=== PATIENT | female | born 1950 | race Caucasian/White ===

== ENCOUNTER 2024-06-22 10:28 | Outpatient (AMB) | payer MEDICARE, SELFPAY ==
--- NOTE | 2024-06-22 10:48 | MHC.OFFVIS ---
Vital Signs 06/22/24 10:57 Height 5 ft 8 in Weight 190 lb BMI 28.9 BP 144/69 H Blood Pressure Location Lt brachial Position Sitting Pulse 84 Intake Visit Reasons: Colonoscopy screening Intake Note: Patient is seen in office for colonoscopy screening. Pt c/o: had a pre cancerous polyp removed in prior colonoscopy and is on 5 yrs recall, prior colonoscopies at [place] and/or [facility], has occasional constipation, 4 wks ago had knee surgery, states could be due to pain meds Line Closer Required: No Accompanied by: Self / Same As Patient Allergies No Known Allergies Allergy (Verified 06/22/24 10:56) Medication List - Last Reviewed 06/22/24 by PATI Queen acetaminophen (Tylenol) 325 mg PO QID PRN atorvastatin 20 mg PO DAILY celecoxib (Celebrex) 200 mg PO DAILY HPI HPI Colonoscopy screening: Details: 73-year-old female referred for screening colonoscopy. She says she has been undergoing a colonoscopy every 5 years because of the history of colon polyps. Her last colonoscopy was about 6 years ago. She says this was done in [facility]. She says that they did not find column polyps on her last colonoscopy. She was told that she had a very long colon She denies any GI complaints at this time. She denies a family history of colon cancer. She states that she just had a knee replacement surgery on the left 4 weeks ago. [facility] Medical History Colon cancer screening Surgical History Hx of section History of total left knee replacement Hx of colonoscopy (10/12/14) Social History Alcohol intake: current Alcohol intake frequency: holidays/special occasions only Patient Tobacco Use Status: Never used Tobacco Review of Systems Const Denies chills and Denies fever(s) Card Denies chest pain, Denies dyspnea and Denies dyspnea on exertion Resp Denies cough, Denies dyspnea and Denies dyspnea on exertion GI Denies hematochezia and Denies change in bowel habits Denies hematuria Musc Denies back pain, Reports arthralgias and Reports limited range of motion Neuro Denies focal weakness and Denies convulsions Psych Denies depression and Denies mood swings Physical Exam Const Other: Using a cane, walks with a limp General: comfortable and no acute distress Orientation/consciousness: patient oriented x3 Neck Neck: Yes no lymphadenopathy Resp Auscultation: clear to auscultation bilaterally Cardio Rhythm: regular rhythm GI Palpation (GI): Soft to palpation, nontender and no guarding Neuro General: patient oriented x3 Assessment & Plan Assessment & Plan (1) Colon cancer screening: Code(s): Z12.11 - Encounter for screening for malignant neoplasm of colon Category: Medical Plan: I explained to her the technique of colonoscopy for screening. I reviewed the risks including but not limited to bleeding and perforation, as well as the benefits and alternatives. She understands and wants to proceed. Coding Level of Care Code New Pt Level 3 (01760) Diagnoses Colon cancer screening Z12.11
[2024-06-22 10:57] VITALS: BP 144/69; PULSE 84; BMI 28.9
== END 2024-06-22 11:05 | disposition home or self-care (01) ==
LOC: HO.HGS 10:28
PROVIDERS: PCP Internal Medicine; Visit Provider Surgery
DX: Z12.11 Encounter for screening for malignant neoplasm of colon (principal)
CPT/HCPCS: 99203

== ENCOUNTER → 2024-06-22 10:28 | Outpatient (BNVA) | payer MEDICARE, SELFPAY | PROVIDERS: PCP Internal Medicine; Visit Provider Surgery | DX: Z12.11 Encounter for screening for malignant neoplasm of colon (principal) | CPT/HCPCS: 99202 ==

== ENCOUNTER 2024-09-16 07:04 | Day surgery (SDC) | payer MEDICARE, SELFPAY ==
[2024-09-14 10:25] VITALS: BMI 28.9
--- OUTSIDE RECORDS SUMMARY | 2024-09-14 17:22 | XMS_ITS | Patient Health Record ---
Author Organization [facility] [address] Address [address] [place] [address] Care Team Providers Care Expediter Clerk Name Role Phone Ulysses Goldman MD Primary Care Provider Tato Deng Unavailable [phone] Reason For Referral No Information Medications Medication SIG (Take, Route, Frequency, Duration) Notes Start Date End Date Status Vitamin D Active Low-Dose Aspirin Act seferino Calcium Active Atorvastatin Calcium 20 MG TAKE 1 TABLET BY MOUTH EVERY DAY Oral for 90 Active Alendronate Sodium 70 MG 1 tablet Orally for 30 day(s) Not-Taking Nystatin-Triamcinolone 323817-6.1 UNIT/GM APPLY IN THE MORNING AND AT NIGHT TO THE RIGHT AND LEFT CORNERS OF THE MOUTH WHEN NEEDED External for 7 Not-Taking Yuvafem 10 MCG USE 1-2 TIMES A WEEK FOR 8 WEEKS Vaginal for 56 Not-Taking Social History Tobacco Use: Social History Observation Description Date Details (start date - stop date) Never Smoker NA - NA Tobacco Use/Smoking Question Answer Notes Are you a: nonsmoker Additional Findings: Tobacco Non-User Current no n-smoker Alcohol Screen Question Answer Notes Did you have a drink containing alcohol in the p ast year? Yes Points 0 Interpretation Negative Tobacco use other than smoking: Question Answer Notes Are you an other tobacco user? No Plan Of Treatment Pending Test Test Name Order Date X ray : Foot, left 3V 04/29/2012 Insurance Providers Payer Name Payer Address Payer Phone Subscriber Number Group Number Insured Name Patient Relationship to Insured Coverage Start Date Coverage End Date [facility] [address] [place] [address] [phone] [id number] Chaparrita Hinton Self - patient is the insured Medical (General) History Medical History History ICD Code Arthritis back, hip, knee pain broken bones measles chicken pox CAD Surgical History Surgery Date(Month/Year) section 1977, 1980
[2024-09-16 07:58] VITALS: BP 135/74; PULSE 80; RESP 12; TEMP 36.6; O2SAT 100; BMI 27.1
[2024-09-16] MEDS: Lactated Ringers 1,000 ML 100 ML IVCONT (08:05)
--- NOTE | 2024-09-16 08:10 | MHC.SHP ---
Pre-Procedural Eval Section A - 24 Hr Update-Section A only Date of Service: 09/16/24 Section B - Complete if H&P > 30 days Chief Complaint: Encounter for screening for malignant neoplasm of Details of Present Illness: Has history of polyps, undergoes a colonoscopy every 5 years Relevant Family History (Specify if Yes): No Relevant Social History: None Present Medications: see Short Stay Collaborative assessment Medical History: Significant History (Hyperlipidemia, arthritis) History of Previous Operations: No relevant previous surgery Allergies: Allergies Allergy/AdvReac Type Severity Reaction Status Date / Time No Known Allergies Allergy Verified 09/16/24 07:49 Review of Systems Sugical H&P ROS: Negative: Constitution, Cardiovascular and Gastrointestinal Exam Surgical H&P Exam: Normal: Heart, Normal: Lungs and Normal: Abdomen Plan Diagnosis/Plan: Unchanged I have reviewed the history and physical and performed a pertinent physical examination on my patient. No changes have occurred unless specified. Time Spent With Patient Time: Total time managing care of this patient today ____ minutes.
--- NOTE | 2024-09-16 08:20 | P.CONAN_ITS ---
Documented by User: Gricel Salas NP 09/15/24 09:38 HPI - Anesthesia Eval Consult details Narrative: 73yo F for Colonoscopy, possible polypectomy PMFSH Active Problems Active Problems: All Active Problems Colon cancer screening (Acute) Past Medical History Medical History (Updated 09/14/24 @ 10:24 by Ruth Ann Pimentel, DOUG) Sleep apnea Colon cancer screening Surgical History Surgical History Hx of section History of total left knee replacement Hx of colonoscopy (10/12/14) Social History Social History Are you a primary aged or disabled care worker to a significant other at home: No Do you presently have visiting nurse or other home services: No Alcohol intake: current Alcohol intake frequency: does not drink Patient Tobacco Use Status: Never used Tobacco Use of substances other than those prescribed or required for medical reasons: No Have you been hit, kicked, punched, or otherwise hurt by someone within the past year? If so, by whom?: No Are you DNR?: No Advance Directives: No Advance Directives Information Provided: Yes Poor oral hygiene: No Meds Allergies Allergy/AdvReac Type Severity Reaction Status Date / Time No Known Allergies Allergy Verified 09/16/24 07:49 Home Medications ?Medication ?Instructions ?Recorded ?Confirmed ?Last Taken ?Type acetaminophen 325 mg tablet 325 mg PO QID PRN Pain (Sc vijay 06/22/24 09/16/24 Unknown History (Tylenol) Score 4-6) atorvastatin 20 mg tablet 20 mg PO DAILY 06/22/24 06/ Unknown History celecoxib 200 mg capsule (Celebrex) 200 mg PO DAILY 09/16/24 09/14/24 History Exam Height,Weight and Vital Signs: Height 5 ft 8 in Weight 86.183 kg Assessment and Plan Assessment Anesthesia Assessment: Chart Reviewed Documented by User: Anne Crenshaw DO 09/16/24 08:37 [facility] Past Medical History Medical History (Updated 09/14/24 @ 10:24 by Ruth Ann Pimentel, DOUG) Sleep apnea Colon cancer screening Family History Family history of problems with anesthesia: No Surgical History Surgical History Hx of section History of total left knee replacement Hx of colonoscopy (10/12/14) History of Problems with Anesthesia: No Social History Social History Are you a primary aged or disabled care worker to a significant other at home: No Do you presently have visiting nurse or other home services: No Alcohol intake: current Alcohol intake frequency: does not drink Patient Tobacco Use Status: Never used Tobacco Use of substances other than those prescribed or required for medical reasons: No Have you been hit, kicked, punched, or otherwise hurt by someone within the past year? If so, by whom?: No Are you DNR?: No Advance Directives: No Advance Directives Information Provided: Yes Poor oral hygiene: No Meds Allergies Allergy/AdvReac Type Severity Reaction Status Date / Time No Known Allergies Allergy Verified 09/16/24 07:49 Home Medications ?Medication ?Instructions ?Recorded ?Confirmed ?Last Taken ?Type acetaminophen 325 mg tablet 325 mg PO QID PRN Pain (Sc vijay 06/22/24 09/16/24 Unknown History (Tylenol) Score 4-6) atorvastatin 20 mg tablet 20 mg PO DAILY 06/22/24 06/ Unknown History celecoxib 200 mg capsule (Celebrex) 200 mg PO DAILY 09/16/24 09/14/24 History Exam Exam Date and Time: 09/16/24 0820 Height,Weight and Vital Signs: Height 5 ft 8 in Weight 86.183 kg Vital Signs Temperature 97.9 F 09/16/24 07:58 Pulse Rate 80 09/16/24 07:58 Respiratory Rate 12 09/16/24 07:58 Blood Pressure 135/74 09/16/24 07:58 Pulse Oximetry 100 09/16/24 07:58 Oxygen Delivery Method Room Air 09/16/24 07:58 Temperature 97.9 F 09/16/24 07:58 Pulse Rate 80 09/16/24 07:58 Respiratory Rate 12 09/16/24 07:58 Blood Pressure 135/74 09/16/24 07:58 Pulse Oximetry 100 09/16/24 07:58 Oxygen Delivery Method Room Air 09/16/24 07:58 Airway Mallampati Class: II TM Dist: <=3cm Neck ROM: Full Loose/Missing/Broken Teeth: No (patient denies any loose or broken teeth) Heart: S1S2 Lungs: CTAB Assessment and Plan Assessment Anesthesia Assessment: Anesthesia Plan Discussed and Chart Reviewed Final Anesthetic Review Family History of Problems with Anesthesia: No History of Problems with Anesthesia: No NPO: Yes ASA Class: II Final Preanesthetic Review: No Changes in Pt Med Stat, Meds/Allgs Chart Reviewed, Consent Obtained/Reviewed and Anes Risks/Benef Reviewed Patient Risk: Low Procedure Risk: Low Anesthetic Plan Anesthetic Plan: MAC: and Agree w/ Assess. and Plan Disposition: Standard PACU
[2024-09-16 08:55] VITALS: BP 119/57; PULSE 73; RESP 16; TEMP 36.3; O2SAT 98
--- NOTE | 2024-09-16 08:55 | W.PM.OPN ---
Operative Note Operative Note Date of Service: 09/16/24 Narrative: Preop diagnosis: History of polyps Postop diagnosis: Sigmoid diverticulosis, otherwise normal colonoscopy findings Procedure: Colonoscopy Surgeon: Dylan Cruz MD The patient is a 73 year old female who had polyps on a colonoscopy 5 years ago in [facility]. She was referred to me for follow-up colonoscopy. She understood the technique of the planned procedure as well as the risks, benefits, and alternatives The patient was brought to the operating room and placed in left lateral decubitus position under monitored anesthesia care. A surgical time-out was done. A full digital rectal exam was done and this did not reveal any significant anal lesions. The tip of the Olympus colonoscope was gently introduced through the anal orifice advanced with insufflation all the way to the cecum. The cecum was intubated. The cecum was identified by visualization of the ileocecal valve as well as the appendiceal orifice. The cecal mucosa was unremarkable. The scope was gradually withdrawn with careful examination of the entire colonic mucosa being done with scope withdrawal. The patient had adequate bowel prep so it was unlikely that any lesion may have been missed. There was note of moderate diverticulosis of the sigmoid. The rectum was reached and there were no lesions seen. The anal canal was unremarkable. The scope was then withdrawn completely with desufflatio. The patient tolerated procedure well. There were no immediate complications. Her next colonoscopy may be in the next 5 years.
[2024-09-16 09:09] VITALS: BP 129/75; PULSE 67; RESP 16; O2SAT 98
[2024-09-16 09:23] VITALS: BP 140/59; PULSE 62; RESP 16; TEMP 36.3; O2SAT 99
== END 2024-09-16 09:44 | disposition home or self-care (01) ==
PROVIDERS: Absent Provider Internal Medicine; PCP Internal Medicine; Visit Provider Surgery
PROC: 0DJD8ZZ Inspection of Lower Intestinal Tract, Via Natural or Artificial Opening Endoscopic (ICD-10-PCS; CPT 45378; principal; 2024-09-16 09:00)
DX: Z12.11 Encounter for screening for malignant neoplasm of colon (principal); K57.30 Diverticulosis of large intestine without perforation or abscess without bleeding; G47.33 Obstructive sleep apnea (adult) (pediatric); Z86.0101 Personal history of adenomatous and serrated colon polyps
CPT/HCPCS: G0105; J2003; J2704

== ENCOUNTER → 2024-09-16 07:04 | Outpatient (BNV) | payer MEDICARE, SELFPAY | PROVIDERS: Absent Provider Internal Medicine; PCP Internal Medicine; Visit Provider Surgery | DX: Z12.11 Encounter for screening for malignant neoplasm of colon (principal); Z86.0100 Personal history of colon polyps, unspecified; K57.90 Diverticulosis of intestine, part unspecified, without perforation or abscess without bleeding | CPT/HCPCS: G0105 ==

== ENCOUNTER 2024-10-05 08:44 | Outpatient (AMB) | payer MEDICARE, SELFPAY ==
--- OUTSIDE RECORDS SUMMARY | 2024-10-05 08:56 | XMS_ITS | Patient Health Record ---
Author Organization [facility] Nabil [address] Address [address] [place] [address] Care Team Providers Care Cash Specialist Name Role Phone Ulysses Goldman MD Primary Care Provider Tato Deng Unavailable [phone] Reason For Referral No Information Medications Medication SIG (Take, Route, Frequency, Duration) Notes Start Date End Date Status Vitamin D Active Low-Dose Aspirin Act seferino Calcium Active Atorvastatin Calcium 20 MG TAKE 1 TABLET BY MOUTH EVERY DAY Oral; Duration: 90 Active Alendronate Sodium 70 MG 1 tablet Orally ; Duration: 30 day(s) Not-Taking Nystatin-Triamcinolone 400075-1.1 UNIT/GM APPLY IN THE MORNING AND AT NIGHT TO THE RIGHT AND LEFT CORNERS OF THE MOUTH WHEN NEEDED External; Duration: 7 Not-Taking Yuvafem 10 MCG USE 1-2 TIMES A WEEK FOR 8 WEEKS Vaginal; Duration: 56 Not-Taking Social History Tobacco Use: Social [...] Insured Coverage Start Date Coverage End Date [facility] [address] [place] [address] [id number] Chaparrita Hinton Self - patient is the insured Medical (General) History Medical History History ICD Code Arthritis back, hip, knee pain broken bones measles chicken pox CAD Surgical History Surgery Date(Month/Year) section 1977, 1980
--- NOTE | 2024-10-05 08:57 | A.OFFVIS_ITS ---
Vital Signs 10/05/24 09:04 Weight 184 lb BP 132/62 Blood Pressure Location Rt brachial Position Sitting Pulse 71 Intake Visit Reasons: s/p colon Intake Note: Patient here s/p colonoscopy on 09-16-2024. Reports procedure went well. Patient c/o: no concerns. Store Clerk Cashier Required: No Accompanied by: Self / Same As Patient Allergies No Known Allergies Allergy (Verified 10/05/24 08:57) Medication List - Last Reconciled 10/05/24 by Dylan Cruz MD acetaminophen (Tylenol) 325 mg PO QID PRN atorvastatin 20 mg PO DAILY celecoxib (Celebrex) 200 mg PO DAILY sodium,potassium,mag sulfates 17.5-3.13-1.6 gram (Suprep Bowel Prep Kit) DILUTE; drink full amount early evening before AND next morning at least 2 hr before procedure; follow w 960 mL water PO HPI HPI s/p colon: Details: She underwent colonoscopy for screening last 09/16/2024. She tolerated procedure well and currently denies significant complaints. [facility] Medical History Sleep apnea Colon cancer screening Surgical History Hx of section History of total left knee replacement Hx of colonoscopy (10/12/14) Social History Are you a primary childcare center director to a significant other at home: No Do you presently have visiting nurse or other home services: No Alcohol intake: current Alcohol intake frequency: does not drink Patient Tobacco Use Status: Never used Tobacco Review of Systems Const Denies chills and Denies fever(s) Card Denies chest pain Resp Denies cough GI Denies abdominal pain Physical Exam Vital Signs: Last Vital Signs Pulse 71 10/05/24 09:04 BP 132/62 10/05/24 09:04 Const General: comfortable and no acute distress Resp Effort & Inspection: normal respiratory effort GI Palpation (GI): Soft to palpation, not firm, nontender and no guarding Assessment & Plan Assessment & Plan (1) Colon cancer screening: Code(s): Z12.11 - Encounter for screening for malignant neoplasm of colon Category: Medical Plan: Status post colonoscopy. I reviewed with the her findings on colonoscopy She had diverticulosis in the sigmoid colon but no other lesions, and no polyps. She says she undergoes a colonoscopy every 5 years so we will recommend repeating this in 2030. Coding Level of Care Code Est Pt Level 2 (35554) Diagnoses Colon cancer screening Z12.11
[2024-10-05 09:04] VITALS: BP 132/62; PULSE 71
== END 2024-10-05 09:25 | disposition home or self-care (01) ==
LOC: HO.HGS 08:45
PROVIDERS: PCP Internal Medicine; Visit Provider Surgery
DX: Z12.11 Encounter for screening for malignant neoplasm of colon (principal)
CPT/HCPCS: 99212

== ENCOUNTER → 2024-10-05 08:44 | Outpatient (BNVA) | payer MEDICARE, SELFPAY | PROVIDERS: PCP Internal Medicine; Visit Provider Surgery | DX: Z09 Encounter for follow-up examination after completed treatment for conditions other than malignant neoplasm (principal); Z98.890 Other specified postprocedural states | CPT/HCPCS: 99212 ==